=== PATIENT | male | born 1995 | race Caucasian/White ===

== ENCOUNTER 2017-01-19 22:26 | Emergency (ER) | payer OTHER ==
[~2017-01-19] VITALS: Ht 185.4 cm; Wt 84.5 kg
[2017-01-19 22:26] VITALS: BP 123/79
== END 2017-01-19 23:18 | disposition left against medical advice (07) ==
LOC: M ED 22:26
DX: Z53.21 Procedure and treatment not carried out due to patient leaving prior to being seen by health care provider (principal)

== ENCOUNTER 2017-01-22 10:01 | Emergency (ER) | payer OTHER ==
[2017-01-22] MEDS ORDERED: IBUP-1022 (10:11)
[2017-01-22] MEDS ORDERED: CHLO0.12 (10:11)
[2017-01-22] MEDS ORDERED: OXYCODONE-ACET (10:11)
[2017-01-22] MEDS ORDERED: CLIN150C14 PO (10:11)
[2017-01-22] MEDS ORDERED: MORPHINE 2 MG/ML 1ML SYRINGE IV ONE ×2 (10:30→12:30)
[2017-01-22] MEDS ORDERED: methylPREDNISolone INJ 125 MG/2 ML VIAL (J2930) IV ONE (10:30)
[2017-01-22 11:15] LABS: BASO % 0.2 % (0.0-1.0); EOS % 0.2 % (0.0-3.0); LARGE UNSTAINED CELL # 0.3 K/mm3 (0.0-0.4); LARGE UNSTAINED CELL % 1.9 % (0.0-4.0); LYMPH # 0.8 K/mm3 (1.5-6.5); LYMPH % 4.2 % (24.0-44.0); MEAN CORPUSCULAR HEMOGLOBIN 31.7 pg (27.0-33.0); MEAN CORPUSCULAR HGB CONC 34.8 g/dl (32.0-36.5); MEAN CORPUSCULAR VOLUME 91.2 fl (80.0-96.0); MONO # 1.6 K/mm3 (0.0-0.8); NEUTROPHILS # 15.2 K/mm3 (1.8-7.7); NEUTROPHILS % 84.6 % (36.0-66.0); PLATELET COUNT, AUTOMATED 228 k/mm3 (150-450); RED CELL DISTRIBUTION WIDTH 12.5 % (11.5-14.5)
[2017-01-22 11:50] LABS: ANION GAP 11 MEQ/L (8-16); CALCIUM LEVEL 9.8 MG/DL (8.5-10.1); CARBON DIOXIDE LEVEL 24 MEQ/L (21-32); CHLORIDE LEVEL 108 MEQ/L (98-107); CREATININE FOR GFR 0.94 MG/DL (0.70-1.30); GLOMERULAR FILTRATION RATE > 60.0 (>60); GLUCOSE, FASTING 87 MG/DL (70-105); POTASSIUM SERUM 4.2 MEQ/L (3.5-5.1); SODIUM LEVEL 143 MEQ/L (136-145)
[2017-01-22 11:52] LABS: BLOOD UREA NITROGEN 8 MG/DL (7-18)
[2017-01-22] MEDS ORDERED: ISOVUE-370 76% 100ML VIAL (Q9967) As Ordered ONE (11:59)
[2017-01-22] MEDS ORDERED: ZITHTAB PO (15:39)
[2017-01-22] MEDS ORDERED: PERC5TAB12 PO (15:39)
[2017-01-22 15:54] VITALS: BP 130/70
--- NOTE | 2017-01-22 16:03 | REP ---
CT soft tissue neck study with IV contrast: History: Pain and swelling after dental work. Question peritonsillar abscess. CT contrast dose: 75 ml of Isovue [address] findings: The visualized paranasal sinuses are clear. The patient appears to be status post wisdom tooth extraction from the left mandible. There is a diffuse area of swelling in the left tonsil and peritonsillar soft tissues with a 2 cm ill-defined area of low density in the soft tissues. No enhancing margin. Findings are compatible with phlegmon. There is also moderate left cervical lymphadenopathy consistent with reactive lymph node enlargement. The left tonsil is enlarged. Study is otherwise unremarkable. Impression: 2 cm ill-defined low density area in the left tonsil which is enlarged. No enhancing margin yet to suggest established abscess . Left cervical lymphadenopathy. Signed by Donald Blank MD 01/22/2017 06:02 P
[2017-01-22] MEDS ORDERED: MEDR4PAK PO (16:47)
== END 2017-01-22 15:55 | disposition home or self-care (01) ==
LOC: M ED 10:01
DX: K04.7 Periapical abscess without sinus (principal); J03.90 Acute tonsillitis, unspecified; F17.290 Nicotine dependence, other tobacco product, uncomplicated; R59.0 Localized enlarged lymph nodes; Z79.899 Other long term (current) drug therapy
CPT/HCPCS: 70491; 80048; 85025; 87880; 96374; 96375; 96376; 99284; J2930; Q9967

== ENCOUNTER → 2017-12-16 | Outpatient (REF) | payer OTHER | LOC: M SFHCLERA 18:05 | DX: J02.9 Acute pharyngitis, unspecified (principal) ==